=== PATIENT | male | born 1995 | race Caucasian/White ===

== ENCOUNTER 2016-06-18 08:52 | Emergency (ER) | payer OTHER | END 2016-06-18 10:51 | disposition home or self-care (01) | LOC: FER 08:52 | DX: R07.1 Chest pain on breathing (principal); L05.91 Pilonidal cyst without abscess; F17.210 Nicotine dependence, cigarettes, uncomplicated; Z82.49 Family history of ischemic heart disease and other diseases of the circulatory system | CPT/HCPCS: 36415; 71010; 84484; 93005 ==